=== PATIENT | female | born 1975 | race Two or more races ===

== ENCOUNTER 2017-06-23 20:17 | Emergency (ER) | payer MEDICARE ==
--- NOTE | 2017-06-23 21:10 | ER Document Report ---
ED General - General Chief Complaint: Leg Pain Stated Complaint: LEG PAIN Time Seen by Provider: 06/23/17 20:38 Mode of Arrival: Ambulatory Information source: Patient Notes: 41-year-old female history of lupus presents with complaints of right calf pain. Patient notes she has had a long commute recently started having calf pain today. Feels like a cramping sensation. Patient denies any previous history of DVTs or PEs, patient was seen yesterday at urgent care for a scrape on her her which is starting to get infected, patient was placed on Bactrim Keflex TRAVEL OUTSIDE OF THE [place] IN LAST 30 DAYS: No - HPI Onset: Just prior to arrival Onset/Duration: Sudden Quality of pain: Cramping Severity: Mild Pain Level: 1 Associated symptoms: Leg swelling Exacerbated by: Movement Relieved by: Denies Similar symptoms previously: Yes Recently seen / treated by doctor: Yes - Related Data Allergies/Adverse Reactions: No Known Allergies Allergy (Unverified 11/22/15 11:34) Past Medical History - Social History Smoking Status: Never Smoker Cigarette use (# per day): No Chew tobacco use (# tins/day): No Smoking Education Provided: No Family History: Reviewed & Not Pertinent - Past Medical History Cardiac Medical History: Denies: Hx Coronary Artery Disease, Hx Hypertension Pulmonary Medical History: Denies: Hx Asthma, Hx Bronchitis, Hx COPD, Hx Pneumonia Neurological Medical History: Denies: Hx Cerebrovascular Accident, Hx Seizures Musculoskeltal Medical History: Reports Hx Arthritis - DDD - Immunizations Hx Diphtheria, Pertussis, Tetanus Vaccination: - Unsure Review of Systems - Review of Systems Notes: REVIEW OF SYSTEMS: CONSTITUTIONAL : Denies fever, chills, or sweats. Denies recent illness. EENT: Denies eye, ear, throat, or mouth pain or symptoms. Denies nasal or sinus congestion or discharge. Denies throat, tongue, or mouth swelling or difficulty swallowing. CARDIOVASCULAR: Denies chest pain. Denies palpitations or racing or irregular heart beat. Denies ankle edema. RESPIRATORY: Denies cough, cold, or chest congestion. Denies shortness of breath, difficulty breathing, or wheezing. GASTROINTESTINAL: Denies abdominal pain or distention. Denies nausea, vomiting , or diarrhea. Denies blood in vomitus, stools, or per rectum. Denies black, tarry stools. Denies constipation. GENITOURINARY: Denies difficulty urinating, painful urination, burning, frequency, blood in urine, or discharge. FEMALE GENITOURINARY: Denies vaginal bleeding, heavy or abnormal periods, irregular periods. Denies vaginal discharge or odor. MUSCULOSKELETAL: Admits to right calf pain SKIN: Admits to right her sore HEMATOLOGIC : Denies easy bruising or bleeding. LYMPHATIC: Denies swollen, enlarged glands. NEUROLOGICAL: Denies confusion or altered mental status. Denies passing out or loss of consciousness. Denies dizziness or lightheadedness. Denies headache. Denies weakness or paralysis or loss of use of either side. Denies problems with gait or speech. Denies sensory loss, numbness, or tingling. Denies seizures. PSYCHIATRIC: Denies anxiety or stress. Denies depression, suicidal ideation, or homicidal ideation. ALL OTHER SYSTEMS REVIEWED AND NEGATIVE. PHYSICAL EXAMINATION: GENERAL: Well-appearing, well-nourished and in no acute distress. HEAD: Atraumatic, normocephalic. EYES: Pupils equal round and reactive to light, extraocular movements intact, conjunctiva are normal. ENT: Nares patent, oropharynx clear without exudates. Moist mucous membranes. NECK: Normal range of motion, supple without lymphadenopathy LUNGS: Breath sounds clear to auscultation bilaterally and equal. No wheezes rales or rhonchi. HEART: Regular rate and rhythm without murmurs ABDOMEN: Soft, nontender, nondistended abdomen. No guarding, no rebound. No masses appreciated. Female : deferred Musculoskeletal: Normal range of motion, no pitting or edema. No cyanosis. NEUROLOGICAL: Cranial nerves grossly intact. Normal speech, normal gait. Normal sensory, motor exams PSYCH: Normal mood, normal affect. SKIN: Superficial abrasion of the right her no secondary signs of infection at this time Dictation was performed using [employer]. voice recognition software Physical Exam - Vital signs Vitals: Temp Pulse Resp BP Pulse Ox 98.1 F 59 L 18 122/72 98 06/23/17 20:34 06/23/17 20:34 06/23/17 20:34 06/23/17 20:34 06/23/17 20:34 Course - Re-evaluation Re-evalutation: 06/23/17 21:10 Given history of lupus calf pain recent travel I will rule patient out for DVT Doppler has been ordered 06/23/17 23:18 Doppler was reviewed by myself, no DVTs noted, patient will be continued on her antibiotics for treatment of her wound After performing a Medical Screening Examination, I estimate there is LOW risk for RUPTURED ESOPHAGUS, PNEUMOTHORAX, PULMONARY EMBOLISM, ACUTE CORONARY SYNDROME, OR THORACIC AORTIC DISSECTION, thus I consider the discharge disposition reasonable. I have reevaluated this patient multiple times and no significant life threatening changes are noted. The patient and I have discussed the diagnosis and risks, and we agree with discharging home with close follow-up. We also discussed returning to the Emergency Department immediately if new or worsening symptoms occur. We have discussed the symptoms which are most concerning (e.g., bloody sputum, worsening pain or shortness of breath) that necessitate immediate return. - Vital Signs Vital signs: Temp Pulse Resp BP Pulse Ox 98.1 F 59 L 18 122/72 98 06/23/17 20:34 06/23/17 20:34 06/23/17 20:34 06/23/17 20:34 06/23/17 20:34 - Diagnostic Test Radiology reviewed: Image reviewed - no dvt, Reports reviewed Discharge - Discharge Clinical Impression: Wound of skin Calf pain Qualifiers: Laterality: right Qualified Code(s): M79.661 - Pain in right lower leg Lupus Qualifiers: Lupus erythematosus form: unspecified Qualified Code(s): L93.0 - Discoid lupus erythematosus Condition: Stable Disposition: HOME, SELF-CARE Instructions: Leg Pain Nonspecific ([facility]) Referrals: FALGUNI SOLOMON PA-C [Primary Care Provider] - Follow up in 3-5 days
[2017-06-23 23:52] VITALS: BP 105/78
--- NOTE | 2017-06-24 00:07 | RADIOLOGY REPORT (SQ) ---
EXAM DESCRIPTION: VENOUS UNILATERAL LOWER COMPLETED DATE/TIME: 06/23/2017 11:28 pm REASON FOR STUDY: right calf pain lupus COMPARISON: None. TECHNIQUE: Dynamic and static mahoney scale and color images acquired of the right leg venous system. S elected spectral images acquired with additional compression and augmentation maneuvers. The contrala teral common femoral vein and saphenofemoral junction were also imaged. Images stored on PACS. LIMITATIONS: None. FINDINGS: COMMON FEMORAL: Normal phasicity, compression and augmentation. No visualized echogenic ma terial on mahoney scale. No defects on color images. FEMORAL: Normal compression and augmentation. No visualized echogenic material on mahoney scale. No defe cts on color images. POPLITEAL: Normal compression, augmentation. No visualized echogenic material on mahoney scale. No defec ts on color images. CALF VESSELS: Normal compression, augmentation. No visualized echogenic material on mahoney scale. No de fects on color images. GSV and SSV: Normal compression, augmentation. No visualized echogenic material on mahoney scale. No def ects on color images. ANY DEEP VENOUS INSUFFICIENCY: Not evaluated. ANY EVIDENCE OF POPLITEAL CYST: No. OTHER: No other significant finding. CONTRALATERAL COMMON FEMORAL VEIN AND SAPHENOFEMORAL JUNCTION: Normal phasicity, compression and augmentation. No visualized echogenic material on mahoney scale. No de fects on color images. IMPRESSION: NO EVIDENCE DVT OR SVT IN THE RIGHT LEG. TECHNICAL DOCUMENTATION: JOB ID: [id number] 2010 [employer]- All Rights Reserved Reading location - IP/workstation name: Office Center
== END 2017-06-23 23:52 | disposition home or self-care (01) ==
LOC: ER 20:17
DX: M79.661 Pain in right lower leg (principal); L93.0 Discoid lupus erythematosus; R25.2 Cramp and spasm; S80.811A Abrasion, right lower leg, initial encounter; X58.XXXA Exposure to other specified factors, initial encounter
CPT/HCPCS: 93971; 99283